=== PATIENT | female | born 1960 | race Caucasian/White ===

== ENCOUNTER 2021-12-25 02:08 | Inpatient (IN) | payer BC ==
[2021-12-25] MEDS ORDERED: Succinylcholine 200 MG/10 ml SYRINGE FS ONE (02:23)
[2021-12-25] MEDS ORDERED: Propofol 1,000 MG/100 ML VIAL IV ONE (02:27)
[2021-12-25] MEDS ORDERED: Nitroglycerin 50 MG/250 ML BOT 0 ML ONE (02:40)
[2021-12-25 02:54] LABS: Actual Bicarbonate (HCO3a) 23.5 mEq/L (22-28); Analyzer IN Cardio ER; CO2 Tension 54.1 mmHg (35.0-45.0); Carboxyhemoglobin (COHb) 0.3 gm% (0.0-3.0); Hemoglobin (Hb) 11.7 g/dL (12.0-16.0); O2 Tension (PaO2), arterial 260.9 mmHg (> 80.0); Potassium - ABG Lab 4.19 mmol/L (3.70-5.30); pH, Arterial 7.26 (7.35-7.45)
[2021-12-25] MEDS ORDERED: DOBUTamine 500 mg/250 ml 250 ML ONE (02:59)
[2021-12-25] MEDS ORDERED: DOPamine 400 MG/D5W 250 ML 250 ML ONE (02:59)
[2021-12-25 03:01] LABS: Puncture Site RRA
[2021-12-25 03:02] LABS: ALV-art Gradient 384.475 mmHg (0-20)
[2021-12-25 03:03] LABS: #Basophils 0.1 thou/uL (0.0-0.2); #Eosinphils 0.3 thou/uL (0.0-0.7); #Lymphocytes 2.7 thou/uL (1.20-3.40); #Neutrophils 12.8 thou/uL (1.40-6.50); %Basophils 0.6 % (0.0-1.0); %Eosinophils 1.9 % (0.0-10.0); %Monocytes 6.1 % (0.0-10.0); %Neutrophils 75.4 % (42.0-75.0); Hemoglobin 11.3 g/dL (12.0-16.0); Mean Corpuscular HGB CONC 31.3 g/dL (32.0-36.0); Mean Corpuscular Hemoglobin 28.5 pg (27.0-31.0); Mean Corpuscular Volume 91.1 fL (78.0-98.0); Platelet Count 289 thou/uL (130-400); RBC Distribution Width 13.6 % (11.5-14.5); Red Blood Cell (RBC) Count 3.95 mill/uL (4.20-5.40)
[2021-12-25 03:13] LABS: INR-International Normal Ratio 2.5; PTT 33.9 sec (22.9-36.1); Prothrombin Time 27.8 sec (12.0-14.7)
[2021-12-25] MEDS ORDERED: Cefepime 2 GM VIAL ONE (03:23)
[2021-12-25] MEDS ORDERED: Vancomycin 1 GM/200 ML BAG ONE (03:27)
[2021-12-25] MEDS ORDERED: Ondansetron PF 4 MG/2 ML Vial ONE (03:35)
[2021-12-25 03:37] LABS: ALT (SGPT) 33 U/L (8-55); AST (SGOT) 39 U/L (5-34); Albumin 3.9 g/dL (3.5-5.0); Alkaline Phosphatase 70 U/L (40-110); Anion Gap 19 mmol/L (10-20); BUN (Urea Nitrogen) 22 mg/dL (9.8-20.1); Bilirubin, Total 0.3 mg/dL (0.2-1.2); Calc. Creatinine Clearance 0 mL/min (70-130); Calcium 8.2 mg/dL (7.8-10.44); Carbon Dioxide 20 mmol/L (22-29); Chloride 102 mmol/L (98-107); Globulin 3.1 g/dL (2.4-3.5); Glucose 411 mg/dL (70-105); Magnesium 2.9 mg/dL (1.6-2.6); Potassium 4.5 mmol/L (3.5-5.1); Sodium 136 mmol/L (136-145)
[2021-12-25] MEDS ORDERED: Metoclopramide HCl 10 MG/2 ML VIAL ONE (04:14)
[2021-12-25] MEDS ORDERED: Fentanyl 100 MCG/2 ML VIAL ONE (04:35)
[2021-12-25] MEDS ORDERED: Insulin Regular 300 UNITS/3 ML VIAL ONE (04:55)
[2021-12-25] MEDS ORDERED: Dextrose 5 % And 0.9 % NaCl 1,000 ML IV SCH (05:30)
[2021-12-25] MEDS ORDERED: Electrolyte Replacement Protocol 1 EACH FS ONE (05:42)
[2021-12-25] MEDS ORDERED: Dextrose 50% Abboject 50 ML SYRINGE SLOW IVP PRN (05:42)
[2021-12-25] MEDS ORDERED: HumaLOG 300 UNITS/3 ML VIAL SC PRN (05:42)
[2021-12-25] MEDS ORDERED: Dextrose 5% in Water 1,000 ML IV PRN (05:42)
[2021-12-25] MEDS ORDERED: Ventilator Sedation Protocol 1 EACH FS ONE (05:42)
[2021-12-25] MEDS ORDERED: Ondansetron PF 4 MG/2 ML Vial IVP PRN (05:42)
[2021-12-25] MEDS ORDERED: Ondansetron ODT 4 MG TAB PO PRN (05:42)
[2021-12-25] MEDS ORDERED: hydrALAZINE 20 MG/ML VIAL SLOW IVP PRN (05:42)
[2021-12-25] MEDS ORDERED: Communication Order-Pharmacy FS PRN (05:42)
[2021-12-25] MEDS ORDERED: Acetaminophen 650 MG Suppository PR PRN (05:42)
[2021-12-25] MEDS ORDERED: Electrolyte Replacement Protocol FS PRN (06:00)
[2021-12-25] MEDS ORDERED: Morphine 4 MG/ML VIAL SLOW IVP PRN (06:00)
[2021-12-25] MEDS ORDERED: Fentanyl CADD 100 ML IV SCH (06:00)
[2021-12-25] MEDS ORDERED: Propofol 1,000 MG/100 ML VIAL IV PRN (06:00)
[2021-12-25] MEDS ORDERED: fentaNYL Citrate-0.9 % NaCl/PF 100 ML IV SCH (06:00)
[2021-12-25] MEDS ORDERED: Fentanyl BOLUS 250 ML IVPB PRN (06:00)
[2021-12-25] MEDS ORDERED: Lorazepam 2 MG/ML VIAL SLOW IVP PRN (06:00)
[2021-12-25] MEDS ORDERED: DISCONTINUE PREVIOUS NARCOTIC PAIN MEDICATIONS AND BENZODIAZEPINES FS SCH (06:00)
[2021-12-25] MEDS ORDERED: Propofol BOLUS 1,000 MG/100 ML VIAL IV PRN (06:00)
[2021-12-25] MEDS: metroNIDAZOLE 500 MG in Premix Bag 1 BAG IVPB SCH ×3 (06:00→21:14)
[2021-12-25] MEDS: methylPREDNISolone Sod Succ 40 MG VIAL IVP SCH ×4 (06:01→23:06)
[2021-12-25] MEDS: Sodium Chloride 0.9% 1,000 ML IV SCH ×2 (06:02→19:58)
[2021-12-25 06:51] LABS: #Eosinphils 0.1 thou/uL (0.0-0.7); #Lymphocytes 0.5 thou/uL (1.20-3.40); #Monocytes 0.3 thou/uL (0.11-0.59); #Neutrophils 15.8 thou/uL (1.40-6.50); %Basophils 0.2 % (0.0-1.0); %Eosinophils 0.5 % (0.0-10.0); %Neutrophils 94.3 % (42.0-75.0); Hemoglobin 10.7 g/dL (12.0-16.0); Mean Corpuscular HGB CONC 31.6 g/dL (32.0-36.0); Mean Corpuscular Hemoglobin 28.7 pg (27.0-31.0); Mean Corpuscular Volume 90.7 fL (78.0-98.0); Mean Platelet Volume 8.8 fL (7.4-10.4); Platelet Count 220 thou/uL (130-400); RBC Distribution Width 13.4 % (11.5-14.5); Red Blood Cell (RBC) Count 3.73 mill/uL (4.20-5.40); White Blood Cell (WBC) Count 16.7 thou/uL (4.8-10.8)
[2021-12-25 07:09] LABS: Lactic Acid 2.7 mmol/L (0.5-2.2)
[2021-12-25 07:28] LABS: ALT (SGPT) 39 U/L (8-55); AST (SGOT) 44 U/L (5-34); Albumin 3.7 g/dL (3.5-5.0); Alkaline Phosphatase 64 U/L (40-110); Anion Gap 13 mmol/L (10-20); BUN (Urea Nitrogen) 22 mg/dL (9.8-20.1); Bilirubin, Total 0.7 mg/dL (0.2-1.2); Calc. Creatinine Clearance 71 mL/min (70-130); Calcium 8.3 mg/dL (7.8-10.44); Carbon Dioxide 26 mmol/L (22-29); Chloride 108 mmol/L (98-107); Globulin 2.8 g/dL (2.4-3.5); Glucose 109 mg/dL (70-105); Potassium 4.9 mmol/L (3.5-5.1); Protein, Total 6.5 g/dL (6.0-8.3); Sodium 142 mmol/L (136-145)
[2021-12-25] MEDS: Mometasone 200 MCG/Formoterol 5 MCG 120 PUFF INHALER INH SCH ×2 (07:56→18:27)
[2021-12-25 08:07] LABS: Base Excess (BEa) -7.2 mEq/L (-2.0 to +3.0); CO2 Tension 41.2 mmHg (35.0-45.0); Calcium, Ionized (arterial) 1.12 mmol/L (1.12-1.30); Carboxyhemoglobin (COHb) 0.7 gm% (0.0-3.0); Hemoglobin (Hb) 11.3 g/dL (12.0-16.0); O2 Tension (PaO2), arterial 98.2 mmHg (> 80.0); Potassium - ABG Lab 4.95 mmol/L (3.70-5.30); pH, Arterial 7.28 (7.35-7.45)
[2021-12-25 08:09] LABS: Puncture Site RRA
[2021-12-25] MEDS ORDERED: Famotidine/PF 20 mg/2ml Vial SLOW IVP SCH (09:00)
[2021-12-25] MEDS ORDERED: Vancomycin HCl 1 GM in Sodium Chloride 0.9% 250 ML 300 ML IVPB SCH (09:00)
[2021-12-25] MEDS ORDERED: Famotidine 40 MG/4 ML VIAL SLOW IVP SCH (10:15)
[2021-12-25] MEDS: Cefepime 2 GM in Sodium Chloride 0.9% 100 ML IVPB SCH (16:06)
[2021-12-25] MEDS: Acetaminophen 500 MG TAB PO PRN ×2 (18:07→23:08)
[2021-12-25] MEDS ORDERED: VANCOMYCIN 1.25 GM/250 ML BAG 1.25 GM in Premix Bag 1 BAG IVPB SCH (22:00)
[2021-12-26] MEDS: Cefepime 2 GM in Sodium Chloride 0.9% 100 ML IVPB SCH ×2 (04:05→16:21)
[2021-12-26 04:31] LABS: #Lymphocytes 0.6 thou/uL (1.20-3.40); #Monocytes 0.6 thou/uL (0.11-0.59); #Neutrophils 14.5 thou/uL (1.40-6.50); %Eosinophils 0.1 % (0.0-10.0); %Lymphocytes 3.7 % (21.0-51.0); %Monocytes 3.6 % (0.0-10.0); %Neutrophils 92.5 % (42.0-75.0); Hemoglobin 9.7 g/dL (12.0-16.0); Mean Corpuscular HGB CONC 31.6 g/dL (32.0-36.0); Mean Corpuscular Hemoglobin 29.1 pg (27.0-31.0); Mean Corpuscular Volume 92.1 fL (78.0-98.0); Mean Platelet Volume 9.3 fL (7.4-10.4); Platelet Count 203 thou/uL (130-400); RBC Distribution Width 13.8 % (11.5-14.5); Red Blood Cell (RBC) Count 3.34 mill/uL (4.20-5.40); White Blood Cell (WBC) Count 15.7 thou/uL (4.8-10.8)
[2021-12-26 04:33] LABS: INR-International Normal Ratio 2.9; Prothrombin Time 31.1 sec (12.0-14.7)
[2021-12-26 04:53] LABS: ALT (SGPT) 34 U/L (8-55); AST (SGOT) 21 U/L (5-34); Albumin 3.5 g/dL (3.5-5.0); Alkaline Phosphatase 54 U/L (40-110); Anion Gap 14 mmol/L (10-20); BUN (Urea Nitrogen) 20 mg/dL (9.8-20.1); Bilirubin, Total 0.3 mg/dL (0.2-1.2); Calc. Creatinine Clearance 70 mL/min (70-130); Calcium 8.6 mg/dL (7.8-10.44); Carbon Dioxide 20 mmol/L (22-29); Chloride 108 mmol/L (98-107); Globulin 2.6 g/dL (2.4-3.5); Glucose 178 mg/dL (70-105); Potassium 4.9 mmol/L (3.5-5.1); Protein, Total 6.1 g/dL (6.0-8.3); Sodium 137 mmol/L (136-145)
[2021-12-26 04:54] LABS: Hemoglobin A1c 5.7 % (4.0-6.0)
[2021-12-26] MEDS: methylPREDNISolone Sod Succ 40 MG VIAL IVP SCH ×4 (06:07→22:54)
[2021-12-26] MEDS: metroNIDAZOLE 500 MG in Premix Bag 1 BAG IVPB SCH ×2 (06:07→15:08)
[2021-12-26] MEDS: Mometasone 200 MCG/Formoterol 5 MCG 120 PUFF INHALER INH SCH ×2 (07:06→19:12)
[2021-12-26] MEDS: HumaLOG 300 UNITS/3 ML VIAL SC PRN ×2 (07:36→18:43)
[2021-12-26] MEDS ORDERED: Famotidine 40 MG/4 ML VIAL SLOW IVP SCH (09:00)
[2021-12-26] MEDS: Acetaminophen 500 MG TAB PO PRN ×3 (09:57→22:49)
[2021-12-26] MEDS: Sodium Chloride 0.9% 1,000 ML IV SCH ×2 (10:02→22:55)
[2021-12-26] MEDS ORDERED: Warfarin Sodium 5 MG TAB PO SCH (17:00)
[2021-12-26] MEDS ORDERED: Famotidine 20 MG TAB PO SCH (21:00)
[2021-12-27] MEDS: Acetaminophen 500 MG TAB PO PRN ×2 (04:07→10:34)
[2021-12-27] MEDS: Cefepime 2 GM in Sodium Chloride 0.9% 100 ML IVPB SCH (04:08)
[2021-12-27] MEDS ORDERED: Furosemide 20 MG/2 ML VIAL SLOW IVP SCH (05:45)
[2021-12-27] MEDS: Mometasone 200 MCG/Formoterol 5 MCG 120 PUFF INHALER INH SCH (06:38)
[2021-12-27] MEDS: methylPREDNISolone Sod Succ 40 MG VIAL IVP SCH ×2 (06:52→12:14)
[2021-12-27] MEDS: HumaLOG 300 UNITS/3 ML VIAL SC PRN ×2 (06:52→12:15)
[2021-12-27 12:57] VITALS: BMI 34.0
[2021-12-27] MEDS ORDERED: Loperamide HCl 1 MG/7.5 ML UDCUP PO PRN (15:13)
[2021-12-27 16:39] VITALS: BP 132/81; TEMP 96.7
== END 2021-12-27 16:28 | disposition home or self-care (01) | DRG 871 ==
LOC: ERS 02:08 → EDBD 02:08 → CCU 04:08 → 2NO 12-26 00:20
PROVIDERS: ADMIT Internal Medicine; ATTEND Internal Medicine
PROC: 02HV33Z Insertion of Infusion Device into Superior Vena Cava, Percutaneous Approach (ICD-10-PCS; principal; 2021-12-25)
PROC: 5A1935Z Respiratory Ventilation, Less than 24 Consecutive Hours (ICD-10-PCS; 2021-12-25)
PROC: 0BH17EZ Insertion of Endotracheal Airway into Trachea, Via Natural or Artificial Opening (ICD-10-PCS; 2021-12-25)
PROC: 5A09357 Assistance with Respiratory Ventilation, Less than 24 Consecutive Hours, Continuous Positive Airway Pressure (ICD-10-PCS; 2021-12-25)
PROC: 3E03329 Introduction of Other Anti-infective into Peripheral Vein, Percutaneous Approach (ICD-10-PCS; 2021-12-25)
PROC: 0D9670Z Drainage of Stomach with Drainage Device, Via Natural or Artificial Opening (ICD-10-PCS; 2021-12-25)
DX: A41.9 Sepsis, unspecified organism (principal); J96.21 Acute and chronic respiratory failure with hypoxia; I50.23 Acute on chronic systolic (congestive) heart failure; J96.22 Acute and chronic respiratory failure with hypercapnia; R65.21 Severe sepsis with septic shock; J44.1 Chronic obstructive pulmonary disease with (acute) exacerbation; E87.2 Acidosis; Z20.822 Contact with and (suspected) exposure to COVID-19; E11.9 Type 2 diabetes mellitus without complications; K21.00 Gastro-esophageal reflux disease with esophagitis, without bleeding; E66.9 Obesity, unspecified; Z88.0 Allergy status to penicillin; Z88.1 Allergy status to other antibiotic agents; Z79.02 Long term (current) use of antithrombotics/antiplatelets; Z78.1 Physical restraint status; I25.2 Old myocardial infarction; Z95.2 Presence of prosthetic heart valve; Z99.81 Dependence on supplemental oxygen; Z82.49 Family history of ischemic heart disease and other diseases of the circulatory system; Z79.01 Long term (current) use of anticoagulants; Z68.34 Body mass index [BMI] 34.0-34.9, adult; Z87.891 Personal history of nicotine dependence
CPT/HCPCS: 31500; 36415; 36416; 36600; 71045; 80053; 82805; 83036; 83605; 83735; 83880; 84145; 84484; 85025; 85610; 85730; 87040; 93005; 93306; 94002; 94640; J0692; J1250; J1265; J1815; J1940; J2405; J2704; J2765; J2920; J3010; J3370; J3490; J7050; J7620; U0003; U0005